=== PATIENT | male | born 1965 | race Caucasian/White ===

== ENCOUNTER 2023-02-23 12:25 | Inpatient (IN) | payer MEDICARE, OTHER ==
--- NOTE | 2023-02-23 13:17 | ED ---
General Adult HPI - General Chief complaint: Abdominal Pain Stated complaint: Low pulse ox Time Seen by Provider: 02/23/23 12:30 Source: EMS, RN notes reviewed, old records reviewed, Caregiver Mode of arrival: EMS Limitations: language barrier, altered mental status, physical limitation - History of Present Illness Initial comments: Nacpjhm-hhvk-wvk male with a history of being deaf and blind also history of developmental delay hypertension hypothyroidism and autism who is brought in for evaluation for a low pulse oximetry reading in the 80s. He started developing a fever for 5 days ago was placed on cephalexin for an x-ray was done and he was diagnosed with pneumonia 2 days ago. He was switched over to Levaquin. He's had decreased appetite decrease activity increase agitation. No trauma reported he is new to this facility as of the seventh of this month. He had been at another facility for 30 years. Information obtained from records and also from the caregiver. - Related Data Home Medications Medication Instructions Recorded Confirmed Cetirizine HCl 10 mg PO HS@189907/20/22 02/23/23 Famotidine 20 mg PO BID@06,189907/20/22 02/23/23 Lactose-Reduced Food [Boost] 1 can PO DAILY@59907/20/22 02/23/23 Levothyroxine Sodium [Synthroid] 75 mcg PO DAILY@59907/20/22 02/23/23 Magnesium Hydroxide [Milk of 2,400 mg PO DAILY PRN 07/20/22 02/23/23 Magnesia] Melatonin 3 mg PO HS@189907/20/22 02/23/23 Meloxicam [Mobic] 7.5 mg PO BID@599,189907/20/22 02/23/23 Metamucil 0.52gm 1 cap PO DAILY 07/20/22 02/23/23 Metoprolol Succinate (ER) [Toprol 25 mg PO DAILY@59907/20/22 02/23/23 XL] Na Phos,M-B/Na Phos,Di-Ba [Fleet 133 ml RECTAL DAILY PRN 07/20/22 02/23/23 Adult] Naltrexone HCl [Revia] 100 mg PO DAILY@0607/20/22 02/23/23 Gestuvpq-Ethzdfvwpk-Yloz Oint 1 applic TOPICAL DAILY PRN 07/20/22 02/23/23 [Triple Antibiotic Ointment] OLANZapine [ZyPREXA] 20 mg PO HS@1900 07/20/22 02/23/23 OXcarbazepine [Trileptal] 150 mg PO HS@0 07/20/22 02/23/23 OXcarbazepine [Trileptal] 600 mg PO BID@0600,1900 07/20/22 02/23/23 Phenyleph/Pramoxin/Glycr/W.pet 1 applic RECTAL DAILY PRN 07/20/22 02/23/23 [Preparation H Cream] Sennosides/Docusate Sodium [Senna 1 tab PO BID@0600,189907/20/22 02/23/23 Plus 8.6-50 mg Tablet] diphenhydrAMINE [Benadryl] 25 - 50 mg PO DAILY PRN 07/20/22 02/23/23 guaiFENesin-DM 600/30MG [Mucinex 1 tab PO Q12H PRN 07/20/22 02/23/23 Dm] polyethylene glycoL 3350 [Miralax] 17 gm PO DAILY@0600 07/20/22 02/23/23 Calcium Carbonate/Vitamin D3 1 tab PO DAILY@0600 02/23/23 02/23/23 [Calcium 500-Vit D3 5 Mcg (200 Iu)] Hydrocortisone Cream 1 applic TOPICAL BID PRN 02/23/23 02/23/23 [Hydrocortisone 1% Cream] Levofloxacin [Levaquin] 500 mg PO DAILY 02/23/23 02/23/23 Multivit-Min/FA/Lycopen/Lutein 1 tab PO DAILY@0602/23/23 02/23/23 [Centrum Silver Tablet] Ondansetron [Zofran] 4 mg PO BID PRN 02/23/23 02/23/23 Allergies Allergy/AdvReac Type Severity Reaction Status Date / Time brompheniramine Allergy Unknown Verified 02/23/23 16:22 [From Dimetapp (brompheniramine-PPA)] haloperidol [From Haldol] Allergy Unknown Verified 02/23/23 16:22 phenylpropanolamine Allergy Unknown Verified 02/23/23 16:22 [From Dimetapp (brompheniramine-PPA)] risperidone [From Risperdal] Allergy Unknown Verified 02/23/23 16:22 Review of Systems ROS Statement: Those systems with pertinent positive or pertinent negative responses have been documented in the HPI. ROS Other: All systems not noted in ROS Statement are negative. Past Medical History Additional Past Medical History / Comment(s): Hypertension, Constipation, Abnormal weight loss, Allergic Rhinitis, Autistic, Deaf/ Mute/ Blind, Hypothryoid. History of Any Multi-Drug Resistant Organisms: Unobtainable Past Surgical History: Unable to Obtain Additional Past Surgical History / Comment(s): Dental work under anesthesia, cataracts removed after multiple times. Past Anesthesia/Blood Transfusion Reactions: No Reported Reaction Past Psychological History: Unable to Obtain Smoking Status: Unknown if ever smoked Past Alcohol Use History: Unable to Obtain Past Drug Use History: Unable to Obtain - Past Family History Father Family Medical History: Myocardial Infarction ([place]) Additional Family Medical History / Comment(s): Father of a [place] at the age of 48yrs. He was a drinker and a smoker. General Exam - General Exam Comments Initial Comments: This is a well-developed thin appearing male who appears to be awake and biting his gloved left hand. Limitations: language barrier, altered mental status, physical limitation General appearance: lethargic Head exam: Present: atraumatic, normocephalic, normal inspection Eye exam: Present: PERRL, EOMI. Absent: scleral icterus, conjunctival injection, periorbital swelling ENT exam: Present: other (Try oral mucosa with chapped lips with a lower lip bleeding slightly but no repair indicated) Neck exam: Present: normal inspection, other. Absent: tenderness, meningismus, lymphadenopathy Respiratory exam: Present: decreased breath sounds (Reviewofbruits) Cardiovascular Exam: Present: regular rate, tachycardia GI/Abdominal exam: Present: soft, normal bowel sounds. Absent: distended, tenderness, guarding, rebound, rigid Extremities exam: Present: full ROM, normal capillary refill, other (Some edema seen to the right upper extremity no definitive deformity). Absent: tenderness, pedal edema, joint swelling, calf tenderness Back exam: Present: normal inspection Neurological exam: Present: altered, CN II-XII intact Psychiatric exam: Present: flat affect Skin exam: Present: warm, dry, intact, normal color. Absent: rash Course Vital Signs 02/23/23 12:43 Temperature 99.8 F H Pulse Rate 101 H Respiratory 18 Rate Blood Pressure 109/63 O2 Sat by Pulse 94 L Oximetry Medical Decision Making - Medical Decision Making I did discuss the findings with the patient's caregiver patient does demonstrate evidence of acute kidney injury dehydration right midlung pneumonia fever palpation treatment failure also rhabdomyolysis. Patient will be admitted case was discussed with Dr. Giordano who did come to the emergency department to see the patient nephrology will be consultedWas pt. sent in by a medical professional or institution (, JARETT, PLANT CARE WORKER, urgent care, hospital, or senior living...) When possible be specific @ -No Did you speak to anyone other than the patient for history (EMS, parent, family, police, friend...)? What history was obtained from this source @ -Caregiver Did you review nursing and triage notes (agree or disagree)? Why? @ -I reviewed and agree with nursing and triage notes Were old charts reviewed (outside hosp., previous admission, EMS record, old EKG, old radiological studies, urgent care reports/EKG's, senior living records)? Report findings @ -No old charts were reviewed Differential Diagnosis (chest pain, altered mental status, abdominal pain women, abdominal pain men, vaginal bleeding, weakness, fever, dyspnea, syncope, headache, dizziness, GI bleed, back pain, seizure, CVA, palpatations, mental health, musculoskeletal)? @ -Altered mental status, dehydration, pneumonia, outpatient treatment failure EKG interpreted by me (3pts min.). @ -Not done X-rays interpreted by me (1pt min.). @ -As above CT interpreted by me (1pt min.). @ -None done U/S interpreted by me (1pt. min.). @ -None done What testing was considered but not performed or refused? (CT, X-rays, U/S, labs)? Why? @ -None What meds were considered but not given or refused? Why? @ -None Did you discuss the management of the patient with other professionals (professionals i.e. JARETT Araiza, PLANT CARE WORKER, lab, RT, psych nurse, secondary social studies teacher, metal fitters and machinists, teacher, aviation tactical readiness officer, caser in)? Give summary @ -Dr. Giordano Was smoking cessation discussed for >3mins.? @ -No Was critical care preformed (if so, how long)? @ - 31 minutes which included multiple reevaluation of the patient multiple discussions with the caregiver discussion with the admitting physician admission orders documentation the above Were there social determinants of health that impacted care today? How? (Homelessness, low income, unemployed, alcoholism, drug addiction, transportat ion, low edu. Level, literacy, decrease access to med. care, intermediate, rehab)? @ -Low educational level and literacy Was there de-escalation of care discussed even if they declined (Discuss DNR or withdrawal of care, Hospice)? DNR status @ -No What co-morbidities impacted this encounter? (DM, HTN, Smoking, COPD, CAD, Cancer, CVA, ARF, Chemo, Hep., AIDS, mental health diagnosis, sleep apnea, morbid obesity)? @ -Developmental delay, blindness, limited hearing, hypothyroidism, hypertension Was patient admitted / discharged? Hospital course, mention meds given and route, prescriptions, significant lab abnormalities, going to OR and other pertinent info. @ -hospital course : The patient was admitted for inpatient evaluation treatment of acute kidney injury with nephrology consultation rhabdomyolysis dehydration pneumonia with failed outpatient treatment Undiagnosed new problem with uncertain prognosis? @ -Acute kidney injury, dehydration Drug Therapy requiring intensive monitoring for toxicity (Heparin, Nitro, Insulin, Cardizem)? @ -No Were any procedures done? @ -No Diagnosis/symptom? @ -Acute kidney injury, dehydration, right midlung pneumonia, outpatient treatment failure Acute, or Chronic, or Acute on Chronic? @ -Acute Uncomplicated (without systemic symptoms) or Complicated (systemic symptoms)? @ -Complicated acute kidney injury, dehydration, rhabdomyolysis Side effects of treatment? @ -No Exacerbation, Progression, or Severe Exacerbation? @ -Severe progression Poses a threat to life or bodily function? How? (Chest pain, [place], [place], pneumonia, PE, COPD, DKA, ARF, appy, cholecystitis, CVA, Diverticulitis, Homicidal, Suicidal, threat to staff... and all critical care pts) @ -Acute kidney injury dehydration pneumonia - Lab Data Result diagrams: 02/23/23 12:45 02/23/23 12:45 Lab Results 02/23/23 02/23/23 02/23/23 Range/Units 12:45 12:45 12:45 WBC 9.0 (3.8-10.6) k/uL RBC 4.30 (4.30-5.90) m/uL Hgb 13.7 (13.0-17.5) gm/dL Hct 40.8 (39.0-53.0) % MCV 95.1 (80.0-100.0) fL MCH 31.8 (25.0-35.0) pg MCHC 33.4 (31.0-37.0) g/dL RDW 13.5 (11.5-15.5) % Plt Count 58 L (150-450) k/uL MPV 8.0 Neutrophils % 85 % Lymphocytes % 3 % Monocytes % 8 % Eosinophils % 0 % Basophils % 0 % Neutrophils # 7.6 (1.3-7.7) k/uL Lymphocytes # 0.3 L (1.0-4.8) k/uL Monocytes # 0.7 (0-1.0) k/uL Eosinophils # 0.0 (0-0.7) k/uL Basophils # 0.0 (0-0.2) k/uL Manual Slide Review Performed RBC Morphology Normal PT 10.0 (9.0-12.0) sec INR 0.9 (<1.2) APTT 20.6 L (22.0-30.0) sec Sodium 140 (137-145) mmol/L Potassium 4.9 (3.5-5.1) mmol/L Chloride 105 (98-107) mmol/L Carbon Dioxide 21 L (22-30) mmol/L Anion Gap 14 mmol/L BUN 119 H* (9-20) mg/dL Creatinine 3.83 H (0.66-1.25) mg/dL Est GFR (CKD-EPI)AfAm 19 (>60 ml/min/1.73 sqM) Est GFR (CKD-EPI)NonAf 17 (>60 ml/min/1.73 sqM) Glucose 190 H (74-99) mg/dL Plasma Lactic Acid Roberto (0.7-2.0) mmol/L Calcium 10.5 H (8.4-10.2) mg/dL Total Bilirubin 0.6 (0.2-1.3) mg/dL AST 44 (17-59) U/L ALT 42 (4-49) U/L Alkaline Phosphatase 128 H (38-126) U/L Creatine Kinase (55-170) U/L Troponin I (0.000-0.034) ng/mL Total Protein 6.0 L (6.3-8.2) g/dL Albumin 3.2 L (3.5-5.0) g/dL TSH (0.465-4.680) mIU/L 02/23/23 02/23/23 02/23/23 Range/Units 12:45 12:45 12:45 WBC (3.8-10.6) k/uL RBC (4.30-5.90) m/uL Hgb (13.0-17.5) gm/dL Hct (39.0-53.0) % MCV (80.0-100.0) fL MCH (25.0-35.0) pg MCHC (31.0-37.0) g/dL RDW (11.5-15.5) % Plt Count (150-450) k/uL MPV Neutrophils % % Lymphocytes % % Monocytes % % Eosinophils % % Basophils % % Neutrophils # (1.3-7.7) k/uL Lymphocytes # (1.0-4.8) k/uL Monocytes # (0-1.0) k/uL Eosinophils # (0-0.7) k/uL Basophils # (0-0.2) k/uL Manual Slide Review RBC Morphology PT (9.0-12.0) sec INR (<1.2) APTT (22.0-30.0) sec Sodium (137-145) mmol/L Potassium (3.5-5.1) mmol/L Chloride (98-107) mmol/L Carbon Dioxide (22-30) mmol/L Anion Gap mmol/L BUN (9-20) mg/dL Creatinine (0.66-1.25) mg/dL Est GFR (CKD-EPI)AfAm (>60 ml/min/1.73 sqM) Est GFR (CKD-EPI)NonAf (>60 ml/min/1.73 sqM) Glucose (74-99) mg/dL Plasma Lactic Acid Roberto 1.7 (0.7-2.0) mmol/L Calcium (8.4-10.2) mg/dL Total Bilirubin (0.2-1.3) mg/dL AST (17-59) U/L ALT (4-49) U/L Alkaline Phosphatase (38-126) U/L Creatine Kinase 527 H (55-170) U/L Troponin I 0.055 H* (0.000-0.034) ng/mL Total Protein (6.3-8.2) g/dL Albumin (3.5-5.0) g/dL TSH 0.609 (0.465-4.680) mIU/L - Radiology Data Interpreted by me: I did interpret the imaging x-ray shows evidence of a right midlung infiltrate right humerus x-ray shows a chronic fracture no acute processes seen here. Critical Care Time Critical Care Time: Yes Total Critical Care Time: 31 Disposition Clinical Impression: Acute kidney injury, Rhabdomyolysis, Dehydration, Febrile illness, acute, Failure of outpatient treatment Disposition: ADMITTED IP TO THIS [facility] Condition: Fair Referrals: Asa Alcantar MD [Primary Care Provider] - 1-2 days
[2023-02-23 13:24] LABS: Albumin 3.2 g/dL (3.5-5.0); Calcium 10.5 mg/dL (8.4-10.2); Potassium 4.9 mmol/L (3.5-5.1); Total Bilirubin 0.6 mg/dL (0.2-1.3)
[2023-02-23 13:27] LABS: Basophils % (A) 0 %; Eosinophils % (A) 0 %; HCT 40.8 % (39.0-53.0); HGB 13.7 gm/dL (13.0-17.5); Lymphocytes # (A) 0.3 k/uL (1.0-4.8); Lymphocytes % (A) 3 %; MCH 31.8 pg (25.0-35.0); MCHC 33.4 g/dL (31.0-37.0); MCV 95.1 fL (80.0-100.0); Monocytes # (A) 0.7 k/uL (0-1.0); Monocytes % (A) 8 %; Neutrophils # (A) 7.6 k/uL (1.3-7.7); Neutrophils % (A) 85 %; RDW 13.5 % (11.5-15.5)
[2023-02-23 13:31] LABS: INR 0.9 (<1.2)
[2023-02-23 13:49] LABS: Platelet Count 58 k/uL (150-450)
[2023-02-23 13:50] LABS: RBC Morphology Normal
[2023-02-23 13:51] LABS: Partial Thromboplastin Time 20.6 sec (22.0-30.0)
[2023-02-23 14:08] LABS: Creatine Kinase 527 U/L (55-170)
--- NOTE | 2023-02-23 14:15 | XR ---
EXAMINATION TYPE: XR chest 2V DATE OF EXAM: 02/23/2023 COMPARISON: 07/20/2022 INDICATION: Hypoxia low O2 TECHNIQUE: Frontal and lateral views of the chest are obtained. Patient is rotated to the right. FINDINGS: The heart size is normal. The pulmonary vasculature is normal. Mild infiltrates in the right midlung. This is nonspecific. Correlate for atelectasis or pneumonia.. IMPRESSION: 1. Mild right midlung infiltrate. Correlate for atelectasis or pneumonia. Follow-up can be performed.
--- NOTE | 2023-02-23 15:55 | XR ---
EXAMINATION TYPE: XR humerus RT DATE OF EXAM: 02/23/2023 COMPARISON: NONE HISTORY: Pain TECHNIQUE: 3 views FINDINGS: There is old ununited mid shaft fracture of the humerus. There is anterior displacement of the distal humerus fragment 3.5 cm. There is some bridging callus formation. The shoulder joint and e lbow joint appear anatomic. There is 90 degree anterior angulation of the fracture site on the latera l view. 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
[2023-02-23] MEDS ORDERED: LEVOFLOXACIN 500MG-D5W PMX 500 MG in DEXTROSE/WATER 1 100ML.BAG IVPB STA (17:20)
[2023-02-23] MEDS ORDERED: PNEUMONIA PROTOCOL UTILIZED 1 EACH MISC PO PRN (17:21)
[2023-02-23] MEDS ORDERED: NA PHOS,M-B/NA PHOS,DI-BA 133 ML ENEMA RECTAL PRN (17:24)
[2023-02-23] MEDS ORDERED: ONDANSETRON 4 MG TAB PO PRN (17:24)
[2023-02-23] MEDS ORDERED: guaiFENesin-DM 600/30MG 1 EACH TAB.ER.12H PO PRN (17:24)
[2023-02-23] MEDS ORDERED: diphenhydrAMINE 25 MG CAP PO PRN (17:24)
--- NOTE | 2023-02-23 17:53 | HP ---
HISTORY AND PHYSICAL CHIEF COMPLAINT: Hypoxia, abdominal pain, and multiple symptomatology. HISTORY OF PRESENT ILLNESS: This is a 57-year-old gentleman with a past medical history of developmental delay and multiple other medical problems, being followed by a physician in the outpatient setting, was not feeling well in the past several days. The patient was initially treated for the UTI, but subsequently, pneumonia was suspected and started on antibiotic. The patient was found to have low pulse ox and was uncomfortable, and the patient was taken to [facility]. Chest x-ray showed evidence of bilateral lower lobe infiltrate, possibly left more than right. The patient was admitted for further evaluation and treatment. The patient is unable to provide any detailed history. History is obtained from my discussion with the ER physician, staff, and as well as the family at the bedside. PAST MEDICAL HISTORY: Reviewed includes hypertension. Rest of the history and rest of the chart are also reviewed. HOME MEDICATIONS: Reviewed again include MiraLAX. Doses and rest of the medications are reviewed, and they are not confirmed yet in the computer. ALLERGIES: Reviewed include Haldol. Rest of the allergies noted. FAMILY HISTORY: History of myocardial infarction. SOCIAL HISTORY: Could not be taken because of the patient's change in mental status. REVIEW OF SYSTEMS: Could not be taken because of the patient's change in mental status. PREOPERATIVE DIAGNOSIS: VITAL SIGNS: Pulse is 101, blood pressure 119/60, respirations 18, temperature 99.8. HEENT: Conjunctivae are normal. NECK: No jugular venous distention. CARDIOVASCULAR: S1 and S2 muffled. RESPIRATORY: Few scattered rhonchi. ABDOMEN: Soft and nontender. LEGS: No edema. NERVOUS SYSTEM: Diffusely weak. Some contractures present. SKIN: No ulcers or rashes. JOINTS: No active deforming arthropathy. LABORATORY DATA: Reviewed. Creatinine is 2.83, which is worsening from the prior. ASSESSMENT: 1. Possible acute bilateral pneumonia, left more than right, with failure of outpatient treatment. 2. Acute kidney failure with acute prerenal factors and acute tubular necrosis. 3. Troponin 0.055, indeterminate. 4. Development delay. 5. Hypertension. 6. Constipation. 7. Multiple medical issues. RECOMMENDATIONS: In this 57-year-old gentleman, who presented with multiple complex medical issues, we will monitor the patient closely. We will continue with current medications and gentle IV hydration. Nephrology consultation. We will monitor the creatinine closely. We will resume the home medications once they are confirmed in the computer, but avoid nephrotoxic medications at this time. Had a detailed discussion with the family at the bedside. Overall prognosis is extremely guarded because of multiple complex medical issues as detailed above. Further recommendations to follow. JUANITO / JERIN: [id number] /
[2023-02-23] MEDS: SODIUM CHLORIDE 0.9% 1,000 ML IV SCH (18:31)
[2023-02-23] MEDS: OXcarbazepine 300 MG TAB PO SCH (20:54)
[2023-02-23] MEDS: OLANZapine 10 MG TAB PO SCH (20:54)
[2023-02-23] MEDS: OXcarbazepine 150 MG TAB PO SCH (20:54)
[2023-02-23] MEDS: FAMOTIDINE 20 MG TAB PO SCH (20:55)
[2023-02-23] MEDS: SENNOSIDES-DOCUSATE SODIUM 1 EACH TAB PO SCH (20:55)
[2023-02-23] MEDS: MELATONIN 3 MG TABLET PO SCH (20:55)
[2023-02-23] MEDS: MELOXICAM 7.5 MG TAB PO SCH (20:55)
[2023-02-23] MEDS: LORATADINE 10 MG TAB PO SCH (20:55)
[2023-02-24] MEDS ORDERED: NON FORMULARY DRUG (Lactose-Reduced Food [Boost] 237 ML Ml) PO SCH (06:00)
[2023-02-24] MEDS: FAMOTIDINE 20 MG TAB PO SCH (06:26)
[2023-02-24] MEDS: NALTREXONE HCL 50 MG TAB PO SCH (06:26)
[2023-02-24] MEDS: MELOXICAM 7.5 MG TAB PO SCH (06:26)
[2023-02-24] MEDS: polyethylene glycoL 3350 17 GM POWD.PACK PO SCH (06:27)
[2023-02-24] MEDS: OXcarbazepine 300 MG TAB PO SCH ×2 (06:27→21:59)
[2023-02-24] MEDS: MULTIVITAMINS, THERA 1 EACH TAB PO SCH (06:27)
[2023-02-24] MEDS: METOPROLOL SUCCINATE (ER) 25 MG TAB.ER.24H PO SCH (06:27)
[2023-02-24] MEDS: LEVOTHYROXINE 75 MCG TAB PO SCH (06:27)
[2023-02-24] MEDS: SENNOSIDES-DOCUSATE SODIUM 1 EACH TAB PO SCH ×2 (06:27→22:01)
[2023-02-24] MEDS: CALCIUM CARB-VIT D 500 MG-5 MCG TAB PO SCH (06:27)
[2023-02-24] MEDS: SODIUM CHLORIDE 0.9% 1,000 ML IV SCH ×4 (06:39→21:45)
[2023-02-24 07:36] LABS: Albumin 2.7 g/dL (3.5-5.0); Calcium 9.9 mg/dL (8.4-10.2); Potassium 4.3 mmol/L (3.5-5.1); Total Bilirubin 0.5 mg/dL (0.2-1.3); Total Protein 5.2 g/dL (6.3-8.2)
[2023-02-24 07:38] LABS: HCT 37.6 % (39.0-53.0); HGB 12.5 gm/dL (13.0-17.5); MCH 32.5 pg (25.0-35.0); MCHC 33.3 g/dL (31.0-37.0); MCV 97.6 fL (80.0-100.0); Mean Platelet Volume 8.8; RBC 3.85 m/uL (4.30-5.90); RDW 13.5 % (11.5-15.5); WBC 7.7 k/uL (3.8-10.6)
[2023-02-24 07:39] LABS: Platelet Count 36 k/uL (150-450)
[2023-02-24] MEDS: PSYLLIUM HUSK 100% 6 GM PACKET PO SCH ×2 (08:52→12:24)
[2023-02-24] MEDS ORDERED: LEVOFLOXACIN 500 MG TAB PO SCH (09:00)
--- NOTE | 2023-02-24 12:15 | XR ---
EXAMINATION TYPE: XR chest 1V portable DATE OF EXAM: 02/24/2023 COMPARISON: 02/23/2023 INDICATION: Pneumonia TECHNIQUE: Single frontal view of the chest is obtained. FINDINGS: The heart size is normal. The pulmonary vasculature is normal. Minimal linear opacities in the right midlung. This appears improved from comparison. Correlate for a telectasis. IMPRESSION: 1. Improving atelectatic type changes right midlung.
--- NOTE | 2023-02-24 12:27 | P.NPCON ---
History of Present Illness - Reason for Consult acute renal failure - History of Present Illness Patient is a 57-year-old male with history of developmental delay and hypertension. He is admitted to the hospital with history of fever along with decreased appetite and increased agitation. Patient was treated with oral antibiotics for possible pneumonia. There was concern for UTI as well. Patient is currently with a bedside sitter. He has been pulling on his IVs and his left arm is restrained with a mitten. Serum creatinine was 3.8 on admission and down to 3.6. Previous creatinine 1.2 on 07/23/2022 Patient has a diaper on. It appears that he has been incontinent. Blood pressure was low with systolic in the 90s. Patient is also maintained on Mobic. Review of Systems As per HPI Past Medical History Past Medical History: Hearing Disorder / Deafness, Hypertension, Thyroid Disorder Additional Past Medical History / Comment(s): Hypertension, Constipation, Abnormal weight loss, Allergic Rhinitis, Autistic, Deaf/ Mute/ Blind, Hypothryoid. History of Any Multi-Drug Resistant Organisms: Unobtainable Past Surgical History: Unable to Obtain Additional Past Surgical History / Comment(s): Dental work under anesthesia, cataracts removed after multiple times. Past Anesthesia/Blood Transfusion Reactions: No Reported Reaction Smoking Status: Never smoker - Past Family History Father Family Medical History: Myocardial Infarction ([place]) Additional Family Medical History / Comment(s): Father of a [place] at the age of 48yrs. He was a drinker and a smoker. Medications and Allergies Home Medications Medication Instructions Recorded Confirmed Type Cetirizine HCl 10 mg PO HS@189907/20/22 02/23/23 History Famotidine 20 mg PO BID@06,189907/20/22 02/23/23 History Lactose-Reduced Food [Boost] 1 can PO DAILY@59907/20/22 02/23/23 History Levothyroxine Sodium [Synthroid] 75 mcg PO DAILY@59907/20/22 02/23/23 History Magnesium Hydroxide [Milk of 2,400 mg PO DAILY PRN 07/20/22 02/23/23 History Magnesia] Melatonin 3 mg PO HS@189907/20/22 02/23/23 History Meloxicam [Mobic] 7.5 mg PO BID@06,189907/20/22 02/23/23 History Metamucil 0.52gm 1 cap PO DAILY 07/20/22 02/23/23 History Metoprolol Succinate (ER) [Toprol 25 mg PO DAILY@59907/20/22 02/23/23 History XL] Na Phos,M-B/Na Phos,Di-Ba [Fleet 133 ml RECTAL DAILY PRN 07/20/22 02/23/23 History Adult] Naltrexone HCl [Revia] 100 mg PO DAILY@0607/20/22 02/23/23 History Fvojhjvs-Ssfnmudwgc-Ajyw Oint 1 applic TOPICAL DAILY PRN 07/20/22 02/23/23 History [Triple Antibiotic Ointment] OLANZapine [ZyPREXA] 20 mg PO HS@189907/20/22 02/23/23 History OXcarbazepine [Trileptal] 150 mg PO HS@189907/20/22 02/23/23 History OXcarbazepine [Trileptal] 600 mg PO BID@0600,189907/20/22 02/23/23 History Phenyleph/Pramoxin/Glycr/W.pet 1 applic RECTAL DAILY PRN 07/20/22 02/23/23 History [Preparation H Cream] Sennosides/Docusate Sodium [Senna 1 tab PO BID@0600,189907/20/22 02/23/23 History Plus 8.6-50 mg Tablet] diphenhydrAMINE [Benadryl] 25 - 50 mg PO DAILY PRN 07/20/22 02/23/23 History guaiFENesin-DM 600/30MG [Mucinex 1 tab PO Q12H PRN 07/20/22 02/23/23 History Dm] polyethylene glycoL 3350 [Miralax] 17 gm PO DAILY@59907/20/22 02/23/23 History Calcium Carbonate/Vitamin D3 1 tab PO DAILY@59902/23/23 02/23/23 History [Calcium 500-Vit D3 5 Mcg (200 Iu)] Hydrocortisone Cream 1 applic TOPICAL BID PRN 02/23/23 02/23/23 History [Hydrocortisone 1% Cream] Levofloxacin [Levaquin] 500 mg PO DAILY 02/23/23 02/23/23 History Multivit-Min/FA/Lycopen/Lutein 1 tab PO DAILY@0600 02/23/23 02/23/23 History [Centrum Silver Tablet] Ondansetron [Zofran] 4 mg PO BID PRN 02/23/23 02/23/23 History Allergies Allergy/AdvReac Type Severity Reaction Status Date / Time brompheniramine Allergy Unknown Verified 02/23/23 16:22 [From Dimetapp (brompheniramine-PPA)] haloperidol [From Haldol] Allergy Unknown Verified 02/23/23 16:22 phenylpropanolamine Allergy Unknown Verified 02/23/23 16:22 [From Dimetapp (brompheniramine-PPA)] risperidone [From Risperdal] Allergy Unknown Verified 02/23/23 16:22 Physical Exam Vitals: Vital Signs Temp Pulse Pulse Resp BP BP BP 02/24/23 11:43 97.8 F 75 20 108/63 02/24/23 08:15 98.3 F 92 20 125/70 02/24/23 04:00 98.2 F 96 19 106/69 02/24/23 00:00 98.5 F 98 19 103/69 02/23/23 20:51 98.8 F 101 H 19 142/75 02/23/23 19:25 101 H 20 96/68 02/23/23 18:28 99.8 F H 106 H 18 130/57 02/23/23 17:00 110 H 18 130/57 02/23/23 15:00 112 H 115/73 02/23/23 14:00 109 H 119/68 02/23/23 13:47 108 H 02/23/23 12:43 99.8 F H 101 H 18 109/63 Pulse Ox 02/24/23 11:43 95 02/24/23 08:15 94 L 02/24/23 04:00 96 02/24/23 00:00 92 L 02/23/23 20:51 95 02/23/23 19:25 99 02/23/23 18:28 94 L 02/23/23 17:00 94 L 02/23/23 15:00 02/23/23 14:00 93 L 02/23/23 13:47 02/23/23 12:43 94 L Intake and Output 02/23/23 02/24/23 02/24/23 22:59 06:59 14:59 Other: Voiding Method Incontinent Incontinent # Voids 1 Weight 54.885 kg Patient is sleeping. He has been agitated and biting on the medicine as well as pulling on his IV lines Right upper extremity is atrophic Heart sounds are heard Lungs are clear with decreased breath sounds at the bases Abdomen is soft Examination of lower extremity shows no edema Results - Lab Results Most recent lab results Calcium 9.9 mg/dL (8.4-10.2) 02/24/23 06:56 02/24/23 06:56 02/24/23 06:56 Assessment and Plan Assessment: 1. Acute kidney injury, mostly ischemic ATN, currently nonoliguric. Patient is also maintained on NSAIDs. Check UA. Check ultrasound of the kidneys. Continue with IV fluids 2. Agitation possibly related to underlying infection 3. Recent diagnosis of pneumonia maintained on antibiotics as outpatient prior to admission, currently also on IV Rocephin 4. 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 History of hypertension Plan: DC Mobic Check ultrasound of the kidneys Check urine analysis Repeat labs in a.m. Avoid hypotension Continue with IV fluids
--- NOTE | 2023-02-24 14:10 | P.PN ---
Subjective Progress Note Date: 02/24/23 Patient is a 57-year-old male with history of developmental delay and hypertension. He is admitted to the hospital with history of fever along with decreased appetite and increased agitation. Patient was treated with oral antibiotics for possible pneumonia. There was concern for UTI as well. Patient is currently with a bedside sitter. He has been pulling on his IVs and his left arm is restrained with a mitten. 02/24. Patient seen and examined. Patient is pulling on his IVs, sitter in place, unable to obtain a detailed review of systems because of patient's history of developmental delay REVIEW OF SYSTEMS: Unable to obtain a detailed review of systems because of patient's history of developmental delay PHYSICAL EXAMINATION: GENERAL: History of developmental delay, confused, not in any acute distress. HEENT: Pupils are round and equally reacting to light. EOMI. No scleral icterus. No conjunctival pallor. Normocephalic, atraumatic. No pharyngeal erythema. No thyromegaly. CARDIOVASCULAR: S1 and S2 present. No murmurs, rubs, or gallops. PULMONARY: Chest is clear to auscultation, no wheezing or crackles. ABDOMEN: Soft, nontender, nondistended, normoactive bowel sounds. No palpable organomegaly. MUSCULOSKELETAL: Swelling of upper extremity seen EXTREMITIES: No cyanosis, clubbing, or pedal edema. NEUROLOGICAL: History of developmental delay SKIN: No rashes. Assessment and plan Bacteremia Bacterial pneumonia SHAYNE Elevated troponin Developmental delay Monitor vital signs Monitor CBC Monitor CMP Continue telemetry monitoring Follow-up on blood cultures Continue IV Rocephin and Levaquin. Added Zyvox Follow-up in nephrology recommendations Consulted ID Objective - Vital Signs Vital signs: Vital Signs Temp 98.3 F 02/24/23 08:15 Pulse 92 02/24/23 08:15 Resp 20 02/24/23 08:15 BP 125/70 02/24/23 08:15 Pulse Ox 94 L 02/24/23 08:15 FiO2 Intake & Output 02/23/23 02/24/23 02/24/23 18:59 06:59 18:59 Weight 54.885 kg 54.885 kg Other: Voiding Method Diaper Incontinent Incontinent # Voids 1 - Labs CBC & Chem 7: 02/24/23 06:56 02/24/23 06:56 Labs: Abnormal Lab Results - Last 24 Hours (Table) 02/23/23 02/23/23 02/23/23 Range/Units 12:45 12:45 12:45 RBC (4.30-5.90) m/uL Hgb (13.0-17.5) gm/dL Hct (39.0-53.0) % Plt Count 58 L (150-450) k/uL Lymphocytes # 0.3 L (1.0-4.8) k/uL APTT 20.6 L (22.0-30.0) sec Chloride (98-107) mmol/L Carbon Dioxide 21 L (22-30) mmol/L BUN 119 H* (9-20) mg/dL Creatinine 3.83 H (0.66-1.25) mg/dL Glucose 190 H (74-99) mg/dL Calcium 10.5 H (8.4-10.2) mg/dL Alkaline Phosphatase 128 H (38-126) U/L Creatine Kinase (55-170) U/L Troponin I (0.000-0.034) ng/mL Total Protein 6.0 L (6.3-8.2) g/dL Albumin 3.2 L (3.5-5.0) g/dL 02/23/23 02/23/23 02/24/23 Range/Units 12:45 12:45 06:56 RBC 3.85 L (4.30-5.90) m/uL Hgb 12.5 L (13.0-17.5) gm/dL Hct 37.6 L (39.0-53.0) % Plt Count 36 L (150-450) k/uL Lymphocytes # (1.0-4.8) k/uL APTT (22.0-30.0) sec Chloride (98-107) mmol/L Carbon Dioxide (22-30) mmol/L BUN (9-20) mg/dL Creatinine (0.66-1.25) mg/dL Glucose (74-99) mg/dL Calcium (8.4-10.2) mg/dL Alkaline Phosphatase (38-126) U/L Creatine Kinase 527 H (55-170) U/L Troponin I 0.055 H* (0.000-0.034) ng/mL Total Protein (6.3-8.2) g/dL Albumin (3.5-5.0) g/dL 02/24/23 Range/Units 06:56 RBC (4.30-5.90) m/uL Hgb (13.0-17.5) gm/dL Hct (39.0-53.0) % Plt Count (150-450) k/uL Lymphocytes # (1.0-4.8) k/uL APTT (22.0-30.0) sec Chloride 113 H (98-107) mmol/L Carbon Dioxide 21 L (22-30) mmol/L BUN 128 H* (9-20) mg/dL Creatinine 3.64 H (0.66-1.25) mg/dL Glucose 138 H (74-99) mg/dL Calcium (8.4-10.2) mg/dL Alkaline Phosphatase 130 H (38-126) U/L Creatine Kinase (55-170) U/L Troponin I (0.000-0.034) ng/mL Total Protein 5.2 L (6.3-8.2) g/dL Albumin 2.7 L (3.5-5.0) g/dL Microbiology - Last 24 Hours (Table) 02/23/23 19:50 Blood Culture Gram Stain - Preliminary Blood 02/23/23 19:50 Blood Culture - Final Blood 02/23/23 19:44 Blood Culture Gram Stain - Preliminary Blood 02/23/23 19:44 Blood Culture - Final Blood 02/23/23 15:45 Blood Culture - Final Blood
--- NOTE | 2023-02-24 14:44 | US ---
EXAMINATION TYPE: US kidneys/renal and bladder DATE OF EXAM: 02/24/2023 COMPARISON: NONE CLINICAL HISTORY: Acute kidney infection. EXAM MEASUREMENTS: Right Kidney: -- Left Kidney: 6.8 x 4.2 x 4.1 cm Right Kidney: Obscured by overlying bowel gas Left Kidney: Limited view, smaller in size Bladder: Patient was combative, unable to attempt bladder views Bilateral Jets seen: No Patient is combative and uncooperative. Unable to visualized the right kidney or the bladder. Left kidney is limited visualization. IMPRESSION: Limited exam shows no gross abnormality of the left kidney. Right kidney not visualized. Bladder not evaluated.
[2023-02-24 15:14] LABS: Band Neutrophils % 1 %; Lymphocytes # (M) 0.39 k/uL (1.0-4.8); Monocytes # (M) 0.92 k/uL (0-1.0); Neutrophils % (M) 82 %; Nucleated Red Blood Cells 0 /100 WBC (0-0); Total Cells Counted 100
[2023-02-24 15:15] LABS: RBC Morphology Normal
[2023-02-24 15:55] LABS: Amorphous Sediment,Urine Occasional /hpf; Appearance,Urine Cloudy (Clear); Bilirubin,Urine Negative (Negative); Blood,Urine Large (Negative); Color,Urine Yellow; Glucose,Urine (UA) Negative (Negative); Ketones,Urine Negative (Negative); Leukocyte Esterase,Urine Negative (Negative); Nitrite,Urine Negative (Negative); PH, Urine 5.5 (5.0-8.0); Protein,Urine 1+ (Negative); RBC,Urine >182 /hpf (0-5); Specific Gravity,Urine 1.013 (1.001-1.035); Urobilinogen,Urine <2.0 mg/dL (<2.0); WBC,Urine 3 /hpf (0-5)
--- NOTE | 2023-02-24 20:54 | P.CONS ---
History of Present Illness - Reason for Consult Consult date: 02/24/23 - History of Present Illness Patient is a 57-year-old male with a past medical history significant for developmental delay patient is deaf and blind also with a history of hypertension hypothyroidism and autism the patient was brought into the ER or the patient was noticed to have low pulse ox in the 80s and the patient has been running a fever for 5 days apparently has been treated with the cephalexin as the patient was diagnosed with pneumonia 2 days prior to that patient noticed to having decreased appetite and increasing agitation he did have a congested cough not bring up any sputum no vomiting to do the food or any diarrhea has been reported by the nursing staff patient on presentation the hospital have a low- grade fever of 99.8 F patient is currently satting 96 to 94% on room air patient did have a normal white count did have elevated BUN/creatinine liver enzymes are normal troponin was mildly elevated and urine was showing mostly hematuria patient did have blood cultures drawn which came back with gram- positive cocci patient was on Rocephin Zyvox was added infectious disease was consulted for further management of antibiotic therapy most of the information has been obtained from review of the chart talking to the nursing staff as the patient was not able to provide any history because of underlying clinical condition patient did have a chest x-ray with evidence of right lower lobe i nfiltrate concerning for pneumonia Past Medical History Past Medical History: Hearing Disorder / Deafness, Hypertension, Thyroid Disorder Additional Past Medical History / Comment(s): Hypertension, Constipation, Abnormal weight loss, Allergic Rhinitis, Autistic, Deaf/ Mute/ Blind, Hypothryoid. History of Any Multi-Drug Resistant Organisms: Unobtainable Past Surgical History: Unable to Obtain Additional Past Surgical History / Comment(s): Dental work under anesthesia, cataracts removed after multiple times. Past Anesthesia/Blood Transfusion Reactions: No Reported Reaction Smoking Status: Never smoker - Past Family History Father Family Medical History: Myocardial Infarction (NV) Additional Family Medical History / Comment(s): Father of a NV at the age of 48yrs. He was a drinker and a smoker. Medications and Allergies Home Medications Medication Instructions Recorded Confirmed Type Cetirizine HCl 10 mg PO HS@1900 07/20/22 02/23/23 History Famotidine 20 mg PO BID@0600,1900 07/20/22 02/23/23 History Lactose-Reduced Food [Boost] 1 can PO DAILY@0607/20/22 02/23/23 History Levothyroxine Sodium [Synthroid] 75 mcg PO DAILY@59907/20/22 02/23/23 History Magnesium Hydroxide [Milk of 2,400 mg PO DAILY PRN 07/20/22 02/23/23 History Magnesia] Melatonin 3 mg PO HS@189907/20/22 02/23/23 History Meloxicam [Mobic] 7.5 mg PO BID@0600,189907/20/22 02/23/23 History Metamucil 0.52gm 1 cap PO DAILY 07/20/22 02/23/23 History Metoprolol Succinate (ER) [Toprol 25 mg PO DAILY@59907/20/22 02/23/23 History XL] Na Phos,M-B/Na Phos,Di-Ba [Fleet 133 ml RECTAL DAILY PRN 07/20/22 02/23/23 History Adult] Naltrexone HCl [Revia] 100 mg PO DAILY@59907/20/22 02/23/23 History Hckfsgtl-Xcwnhiigmk-Xosm Oint 1 applic TOPICAL DAILY PRN 07/20/22 02/23/23 History [Triple Antibiotic Ointment] OLANZapine [ZyPREXA] 20 mg PO HS@189907/20/22 02/23/23 History OXcarbazepine [Trileptal] 150 mg PO HS@189907/20/22 02/23/23 History OXcarbazepine [Trileptal] 600 mg PO BID@0600,189907/20/22 02/23/23 History Phenyleph/Pramoxin/Glycr/W.pet 1 applic RECTAL DAILY PRN 07/20/22 02/23/23 History [Preparation H Cream] Sennosides/Docusate Sodium [Senna 1 tab PO BID@0600,189907/20/22 02/23/23 History Plus 8.6-50 mg Tablet] diphenhydrAMINE [Benadryl] 25 - 50 mg PO DAILY PRN 07/20/22 02/23/23 History guaiFENesin-DM 600/30MG [Mucinex 1 tab PO Q12H PRN 07/20/22 02/23/23 History Dm] polyethylene glycoL 3350 [Miralax] 17 gm PO DAILY@0600 07/20/22 02/23/23 History Calcium Carbonate/Vitamin D3 1 tab PO DAILY@0600 02/23/23 02/23/23 History [Calcium 500-Vit D3 5 Mcg (200 Iu)] Hydrocortisone Cream 1 applic TOPICAL BID PRN 02/23/23 02/23/23 History [Hydrocortisone 1% Cream] Levofloxacin [Levaquin] 500 mg PO DAILY 02/23/23 02/23/23 History Multivit-Min/FA/Lycopen/Lutein 1 tab PO DAILY@0600 02/23/23 02/23/23 History [Centrum Silver Tablet] Ondansetron [Zofran] 4 mg PO BID PRN 02/23/23 02/23/23 History Allergies Allergy/AdvReac Type Severity Reaction Status Date / Time brompheniramine Allergy Unknown Verified 02/23/23 16:22 [From Dimetapp (brompheniramine-PPA)] haloperidol [From Haldol] Allergy Unknown Verified 02/23/23 16:22 phenylpropanolamine Allergy Unknown Verified 02/23/23 16:22 [From Dimetapp (brompheniramine-PPA)] risperidone [From Risperdal] Allergy Unknown Verified 02/23/23 16:22 Physical Exam Vitals: Vital Signs Temp Pulse Pulse Resp BP BP BP 02/24/23 08:15 98.3 F 92 20 125/70 02/24/23 04:00 98.2 F 96 19 106/69 02/24/23 00:00 98.5 F 98 19 103/69 02/23/23 20:51 98.8 F 101 H 19 142/75 02/23/23 19:25 101 H 20 96/68 02/23/23 18:28 99.8 F H 106 H 18 130/57 02/23/23 17:00 110 H 18 130/57 02/23/23 15:00 112 H 115/73 02/23/23 14:00 109 H 119/68 02/23/23 13:47 108 H 02/23/23 12:43 99.8 F H 101 H 18 109/63 Pulse Ox 02/24/23 08:15 94 L 02/24/23 04:00 96 02/24/23 00:00 92 L 02/23/23 20:51 95 02/23/23 19:25 99 02/23/23 18:28 94 L 02/23/23 17:00 94 L 02/23/23 15:00 02/23/23 14:00 93 L 02/23/23 13:47 02/23/23 12:43 94 L Intake and Output 02/23/23 02/24/23 02/24/23 22:59 06:59 14:59 Other: Voiding Method Incontinent Incontinent # Voids 1 Weight 54.885 kg Results CBC & Chem 7: 02/24/23 06:56 02/24/23 06:56 Labs: Abnormal Lab Results - Last 24 Hours (Table) 02/23/23 02/23/23 02/23/23 Range/Units 12:45 12:45 12:45 RBC (4.30-5.90) m/uL Hgb (13.0-17.5) gm/dL Hct (39.0-53.0) % Plt Count 58 L (150-450) k/uL Lymphocytes # 0.3 L (1.0-4.8) k/uL APTT 20.6 L (22.0-30.0) sec Chloride (98-107) mmol/L Carbon Dioxide 21 L (22-30) mmol/L BUN 119 H* (9-20) mg/dL Creatinine 3.83 H (0.66-1.25) mg/dL Glucose 190 H (74-99) mg/dL Calcium 10.5 H (8.4-10.2) mg/dL Alkaline Phosphatase 128 H (38-126) U/L Creatine Kinase (55-170) U/L Troponin I (0.000-0.034) ng/mL Total Protein 6.0 L (6.3-8.2) g/dL Albumin 3.2 L (3.5-5.0) g/dL 02/23/23 02/23/23 02/24/23 Range/Units 12:45 12:45 06:56 RBC 3.85 L (4.30-5.90) m/uL Hgb 12.5 L (13.0-17.5) gm/dL Hct 37.6 L (39.0-53.0) % Plt Count 36 L (150-450) k/uL Lymphocytes # (1.0-4.8) k/uL APTT (22.0-30.0) sec Chloride (98-107) mmol/L Carbon Dioxide (22-30) mmol/L BUN (9-20) mg/dL Creatinine (0.66-1.25) mg/dL Glucose (74-99) mg/dL Calcium (8.4-10.2) mg/dL Alkaline Phosphatase (38-126) U/L Creatine Kinase 527 H (55-170) U/L Troponin I 0.055 H* (0.000-0.034) ng/mL Total Protein (6.3-8.2) g/dL Albumin (3.5-5.0) g/dL 02/24/23 Range/Units 06:56 RBC (4.30-5.90) m/uL Hgb (13.0-17.5) gm/dL Hct (39.0-53.0) % Plt Count (150-450) k/uL Lymphocytes # (1.0-4.8) k/uL APTT (22.0-30.0) sec Chloride 113 H (98-107) mmol/L Carbon Dioxide 21 L (22-30) mmol/L BUN 128 H* (9-20) mg/dL Creatinine 3.64 H (0.66-1.25) mg/dL Glucose 138 H (74-99) mg/dL Calcium (8.4-10.2) mg/dL Alkaline Phosphatase 130 H (38-126) U/L Creatine Kinase (55-170) U/L Troponin I (0.000-0.034) ng/mL Total Protein 5.2 L (6.3-8.2) g/dL Albumin 2.7 L (3.5-5.0) g/dL Microbiology - Last 24 Hours (Table) 02/23/23 19:50 Blood Culture Gram Stain - Preliminary Blood 02/23/23 19:50 Blood Culture - Final Blood 02/23/23 19:44 Blood Culture Gram Stain - Preliminary Blood 02/23/23 19:44 Blood Culture - Final Blood 02/23/23 15:45 Blood Culture - Final Blood Assessment and Plan Plan: 1patient with gram-positive bacteremia in this patient presented to hospital with low pulse ox congested cough and evidence of left lower lobe infiltrate on the chest x-ray concerning for pneumonia likely secondary to pneumonia with a question of possible strep pneumo versus Staph aureus failing outpatient oral cephalexin therapy. 2patient with renal insufficiency and high risk of nephrotoxicity from vancomycin. 3blood cultures will be repeated document clearance of bacteremia check a CRP and a procalcitonin. 4patient to continue with Zyvox while waiting for the ID sensitivity of this pathogen. We will follow on clinical condition and cultures to further adjust medication if needed Thank you for this consultation we will follow the patient along with you Time with Patient: Greater than 30
[2023-02-24] MEDS: LINEZOLID 600 MG TAB PO SCH (22:00)
[2023-02-24] MEDS: OLANZapine 10 MG TAB PO SCH (22:00)
[2023-02-24] MEDS: OXcarbazepine 150 MG TAB PO SCH (22:00)
[2023-02-24] MEDS: MELATONIN 3 MG TABLET PO SCH (22:01)
[2023-02-24] MEDS: LORATADINE 10 MG TAB PO SCH (22:01)
[2023-02-25] MEDS ORDERED: FAMOTIDINE 20 MG TAB PO SCH (06:00)
[2023-02-25] MEDS: LEVOTHYROXINE 75 MCG TAB PO SCH (06:29)
[2023-02-25] MEDS: CALCIUM CARB-VIT D 500 MG-5 MCG TAB PO SCH (06:29)
[2023-02-25] MEDS: SENNOSIDES-DOCUSATE SODIUM 1 EACH TAB PO SCH ×2 (06:29→21:41)
[2023-02-25] MEDS: MULTIVITAMINS, THERA 1 EACH TAB PO SCH (06:29)
[2023-02-25] MEDS: METOPROLOL SUCCINATE (ER) 25 MG TAB.ER.24H PO SCH (06:29)
[2023-02-25] MEDS: NALTREXONE HCL 50 MG TAB PO SCH (06:30)
[2023-02-25] MEDS: LINEZOLID 600 MG TAB PO SCH (06:30)
[2023-02-25] MEDS: OXcarbazepine 300 MG TAB PO SCH (06:31)
[2023-02-25] MEDS: polyethylene glycoL 3350 17 GM POWD.PACK PO SCH (06:32)
[2023-02-25] MEDS: PSYLLIUM HUSK 100% 6 GM PACKET PO SCH (07:00)
[2023-02-25] MEDS: SODIUM CHLORIDE 0.9% 1,000 ML IV SCH (08:00)
[2023-02-25 09:38] LABS: HCT 37.5 % (39.0-53.0); HGB 11.8 gm/dL (13.0-17.5); MCH 30.7 pg (25.0-35.0); MCHC 31.4 g/dL (31.0-37.0); Mean Platelet Volume 8.7; RBC 3.83 m/uL (4.30-5.90); RDW 13.8 % (11.5-15.5); WBC 8.7 k/uL (3.8-10.6)
[2023-02-25 09:40] LABS: Platelet Count 47 k/uL (150-450)
[2023-02-25 09:42] LABS: Albumin 2.5 g/dL (3.5-5.0); Calcium 9.6 mg/dL (8.4-10.2); Potassium 4.1 mmol/L (3.5-5.1); Total Bilirubin 0.5 mg/dL (0.2-1.3); Total Protein 5.1 g/dL (6.3-8.2)
[2023-02-25] MEDS ORDERED: DEXTROSE 5% IN WATER 1,000 ML IV SCH (11:30)
[2023-02-25 11:32] LABS: C Reactive Protein 37.1 mg/dL (<1.0)
[2023-02-25] MEDS ORDERED: LEVOFLOXACIN 250 MG TAB PO SCH (12:00)
[2023-02-25] MEDS ORDERED: HYDROcodone/APAP 5-325MG 1 EACH TAB PO PRN (13:44)
[2023-02-25] MEDS ORDERED: MORPHINE SULFATE (100 MG/2 ML) 100 MG in SODIUM CHLORIDE 0.9% 100 ML IV SCH (13:45)
--- NOTE | 2023-02-25 13:50 | P.PN ---
Subjective Progress Note Date: 02/25/23 Patient is a 57-year-old male with history of developmental delay and hypertension. He is admitted to the hospital with history of fever along with decreased appetite and increased agitation. Patient was treated with oral antibiotics for possible pneumonia. There was concern for UTI as well. Patient is currently with a bedside sitter. He has been pulling on his IVs and his left arm is restrained with a mitten. 02/24. Patient seen and examined. Patient is pulling on his IVs, sitter in place, unable to obtain a detailed review of systems because of patient's history of developmental delay 02/25. Patient seen and examined. Discussed with patient's guardian, they don't want to pursue any more aggressive measures, wants patient to be transitioned to hospice. Palliative care team has been consulted. REVIEW OF SYSTEMS: Unable to obtain a detailed review of systems because of patient's history of developmental delay PHYSICAL EXAMINATION: GENERAL: History of developmental delay, confused, not in any acute distress. HEENT: Pupils are round and equally reacting to light. EOMI. No scleral icterus. No conjunctival pallor. Normocephalic, atraumatic. No pharyngeal erythema. No thyromegaly. CARDIOVASCULAR: S1 and S2 present. No murmurs, rubs, or gallops. PULMONARY: Chest is clear to auscultation, no wheezing or crackles. ABDOMEN: Soft, nontender, nondistended, normoactive bowel sounds. No palpable organomegaly. MUSCULOSKELETAL: Swelling of upper extremity seen EXTREMITIES: No cyanosis, clubbing, or pedal edema. NEUROLOGICAL: History of developmental delay SKIN: No rashes. Assessment and plan Bacteremia Bacterial pneumonia SHAYNE Elevated troponin Developmental delay Plan; CODE STATUS changed to DO NOT RESUSCITATE comfort measures. DC all antibiotics. DC all imaging and labs. Case management on board, palliative care team has been consulted as well. Family wants the patient to be discharged to hospice home Objective - Vital Signs Vital signs: Vital Signs Temp 97.9 F 02/25/23 04:00 Pulse 88 02/25/23 04:00 Resp 20 02/25/23 04:00 BP 128/76 02/25/23 04:00 Pulse Ox 94 L 02/25/23 04:00 FiO2 Intake & Output 02/24/23 02/25/23 02/25/23 18:59 06:59 18:59 Intake Total 1610 1580 Output Total 200 950 Balance 1410 630 Weight 48 kg Intake: IV 1580 Invasive Line 1 20 Sodium Chloride 0.9% 1, 1560 000 ml @ 130 mls/hr IV . Q7H42M [facility] Rx#:[id number] Intake, IV Titration 1610 Amount Sodium Chloride 0.9% 1, 1560 000 ml @ 130 mls/hr IV . Q7H42M [facility] Rx#:[id number] cefTRIAXone 1 gm In 50 Sodium Chloride 0.9% 50 ml @ 100 mls/hr IVPB Q24HR [facility] Rx#:[id number] Output: Urine 200 950 Other: Voiding Method Incontinent External Catheter # Voids 1 - Labs CBC & Chem 7: 02/25/23 07:17 02/25/23 07:17 Labs: Abnormal Lab Results - Last 24 Hours (Table) 02/24/23 02/24/23 02/25/23 Range/Units 06:56 15:16 07:17 RBC 3.83 L (4.30-5.90) m/uL Hgb 11.8 L (13.0-17.5) gm/dL Hct 37.5 L (39.0-53.0) % Plt Count 47 L (150-450) k/uL Lymphocytes # (Manual) 0.39 L (1.0-4.8) k/uL Urine Protein 1+ H (Negative) Urine Blood Large H (Negative) Urine RBC >182 H (0-5) /hpf Amorphous Sediment Occasional H (None) /hpf Microbiology - Last 24 Hours (Table) 02/24/23 17:17 Blood Culture Gram Stain - Preliminary Blood 02/24/23 17:17 Blood Culture - Final Blood 02/23/23 19:44 Blood Culture Gram Stain - Preliminary Blood 02/23/23 15:45 Blood Culture Gram Stain - Preliminary Blood Blood Culture - Preliminary Staphylococcus aureus 02/23/23 19:50 Blood Culture Gram Stain - Preliminary Blood 02/23/23 19:50 Blood Culture - Final Blood 02/23/23 19:44 Blood Culture - Final Blood
--- NOTE | 2023-02-25 13:51 | P.PN ---
Subjective Patient is seen for follow-up for acute kidney injury. Patient has underlying developmental delay. He is maintained on IV fluids. Renal function improved slightly but serum creatinine remains elevated at 3.2 mg/dL. Sodium is increased to 155 today. Patient was not cooperative during the ultrasound exam therefore a bladder scan was done and it did show significant urine retention. A Bautista catheter will be placed There is discussion regarding palliative/hospice care. Patient has beEN drinking a lot of water. Objective - Vital Signs Vital signs: Vital Signs Temp 97.7 F 02/25/23 07:42 Pulse 90 02/25/23 12:35 Resp 16 02/25/23 12:35 BP 148/90 02/25/23 12:35 Pulse Ox 98 02/25/23 12:35 FiO2 Intake & Output 02/24/23 02/25/23 02/25/23 18:59 06:59 18:59 Intake Total 1610 1580 Output Total 200 950 300 Balance 1410 630 -300 Weight 48 kg 48 kg Intake: IV 1580 Invasive Line 1 20 Sodium Chloride 0.9% 1, 1560 000 ml @ 130 mls/hr IV . Q7H42M [facility] Rx#:[id number] Intake, IV Titration 1610 Amount Sodium Chloride 0.9% 1, 1560 000 ml @ 130 mls/hr IV . Q7H42M [facility] Rx#:[id number] cefTRIAXone 1 gm In 50 Sodium Chloride 0.9% 50 ml @ 100 mls/hr IVPB Q24HR [facility] Rx#:[id number] Output: Urine 200 950 300 Other: Voiding Method Incontinent External Catheter External Catheter # Voids 1 - Exam Patient is awake. Does not open eyes Mitten still present in the left hand Right upper extremity hypoplastic Abdomen is soft No edema noted in the lower extremities Lungs are clear heart sounds are heard. - Labs CBC & Chem 7: 02/25/23 07:17 02/25/23 07:17 Labs: Abnormal Lab Results - Last 24 Hours (Table) 02/24/23 02/24/23 02/25/23 Range/Units 06:56 15:16 07:17 RBC 3.83 L (4.30-5.90) m/uL Hgb 11.8 L (13.0-17.5) gm/dL Hct 37.5 L (39.0-53.0) % Plt Count 47 L (150-450) k/uL Lymphocytes # (Manual) 0.39 L (1.0-4.8) k/uL Sodium (137-145) mmol/L Chloride (98-107) mmol/L Carbon Dioxide (22-30) mmol/L BUN (9-20) mg/dL Creatinine (0.66-1.25) mg/dL Glucose (74-99) mg/dL Alkaline Phosphatase (38-126) U/L C-Reactive Protein (<1.0) mg/dL Total Protein (6.3-8.2) g/dL Albumin (3.5-5.0) g/dL Urine Protein 1+ H (Negative) Urine Blood Large H (Negative) Urine RBC >182 H (0-5) /hpf Amorphous Sediment Occasional H (None) /hpf 02/25/23 Range/Units 07:17 RBC (4.30-5.90) m/uL Hgb (13.0-17.5) gm/dL Hct (39.0-53.0) % Plt Count (150-450) k/uL Lymphocytes # (Manual) (1.0-4.8) k/uL Sodium 155 H (137-145) mmol/L Chloride 125 H (98-107) mmol/L Carbon Dioxide 19 L (22-30) mmol/L BUN 124 H* (9-20) mg/dL Creatinine 3.28 H (0.66-1.25) mg/dL Glucose 122 H (74-99) mg/dL Alkaline Phosphatase 147 H (38-126) U/L C-Reactive Protein 37.1 H (<1.0) mg/dL Total Protein 5.1 L (6.3-8.2) g/dL Albumin 2.5 L (3.5-5.0) g/dL Urine Protein (Negative) Urine Blood (Negative) Urine RBC (0-5) /hpf Amorphous Sediment (None) /hpf Microbiology - Last 24 Hours (Table) 02/24/23 17:17 Blood Culture Gram Stain - Preliminary Blood 02/24/23 17:17 Blood Culture - Final Blood 02/23/23 19:44 Blood Culture Gram Stain - Preliminary Blood 02/23/23 15:45 Blood Culture Gram Stain - Preliminary Blood Blood Culture - Preliminary Staphylococcus aureus 02/23/23 19:50 Blood Culture Gram Stain - Preliminary Blood 02/23/23 19:50 Blood Culture - Final Blood Assessment and Plan Assessment: 1. Acute kidney injury, mostly ischemic ATN, and due to urine retention, currently nonoliguric. Patient was also maintained on NSAIDs. Currently discontinued. Continue with IV fluids. Insert Bautista catheter 2. Agitation possibly related to underlying infection 3. Recent diagnosis of pneumonia maintained on antibiotics as outpatient prior to admission, currently also on IV Rocephin 4. 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 History of hypertension 6. Hypernatremia Plan: Switch IV fluids to D5W Insert Bautista catheter Repeat labs in a.m. Continue to encourage increase oral intake particularly fluids.
[2023-02-25] MEDS ORDERED: ETODOLAC 400 MG TAB PO PRN (13:57)
[2023-02-25] MEDS ORDERED: SCOPOLAMINE 1 MG/72 HR PATCH TRANSDERM SCH (14:00)
--- NOTE | 2023-02-25 14:22 | P.CRDCN ---
History of Present Illness Consult date: 02/25/23 Reason for Consult (text): Elevated troponin History of present illness: History of present illness: This is a 57-year-old male with past medical history of being deaf and blind, developmentally delayed, hypertension, hypothyroidism, autism. Patient was brought in the hospital due to low pulse ox. Patient arrived to the emergency center on 02/23 and has been treated for bacterial pneumonia, bacteremia acute kidney injury. Patient had a troponin reading of 0.055 and consult was placed with cardiology for evaluation of elevated troponin. EKG was obtained this morning which revealed sinus rhythm with no acute ST changes Chest x-ray: 02/24 shows improving atelectatic changes right midlung W BC 8.7, hemoglobin 11.8, platelet count 47. Sodium 155, potassium 4.1, chloride 125, CO2 19, BUN 124 creatinine 3.28. This is improved from creatinine of 3.83. Blood sugar 122. Alkaline phosphatase 147. Troponin 0.055. TSH 0.609. Urinalysis bloody. Urine Legionella negative. Home cardiac medications: Toprol-XL 25 mg daily Review Of Systems: At the time of my evaluation: Unable to obtain. Physical examination: Gen: This is a 57-year-old thin male. He is sitting in a position with legs pulled up to his chest. No respiratory distress noted. VS: reviewed HEENT: Head is atraumatic. HEART: Regular rate and rhythm. No murmur. EXTREMITIES: No pedal edema. Assessment: Abnormal troponin most likely due to sepsis, acute kidney injury Pneumonia Bacteremia Acute kidney injury Developmentally delayed Deaf Blind Hypertension Hypothyroidism Plan: No cardiac workup at this time Cardiology will sign off Thank you kindly for this consultation. Nurse practitioner note has been reviewed, I agree with documented findings and plan of care. Patient was seen and examined. Past Medical History Past Medical History: Hearing Disorder / Deafness, Hypertension, Thyroid Disorder Additional Past Medical History / Comment(s): Hypertension, Constipation, Abnormal weight loss, Allergic Rhinitis, Autistic, Deaf/ Mute/ Blind, Hypothryoid. History of Any Multi-Drug Resistant Organisms: Unobtainable Past Surgical History: Unable to Obtain Additional Past Surgical History / Comment(s): Dental work under anesthesia, cataracts removed after multiple times. Past Anesthesia/Blood Transfusion Reactions: No Reported Reaction Smoking Status: Never smoker - Past Family History Father Family Medical History: Myocardial Infarction (CA) Additional Family Medical History / Comment(s): Father of a CA at the age of 48yrs. He was a drinker and a smoker. Medications and Allergies Home Medications Medication Instructions Recorded Confirmed Type Cetirizine HCl 10 mg PO HS@189907/20/22 02/23/23 History Famotidine 20 mg PO BID@0600,189907/20/22 02/23/23 History Lactose-Reduced Food [Boost] 1 can PO DAILY@59907/20/22 02/23/23 History Levothyroxine Sodium [Synthroid] 75 mcg PO DAILY@59907/20/22 02/23/23 History Magnesium Hydroxide [Milk of 2,400 mg PO DAILY PRN 07/20/22 02/23/23 History Magnesia] Melatonin 3 mg PO HS@189907/20/22 02/23/23 History Meloxicam [Mobic] 7.5 mg PO BID@06,189907/20/22 02/23/23 History Metamucil 0.52gm 1 cap PO DAILY 07/20/22 02/23/23 History Metoprolol Succinate (ER) [Toprol 25 mg PO DAILY@59907/20/22 02/23/23 History XL] Na Phos,M-B/Na Phos,Di-Ba [Fleet 133 ml RECTAL DAILY PRN 07/20/22 02/23/23 History Adult] Naltrexone HCl [Revia] 100 mg PO DAILY@0607/20/22 02/23/23 History Ibylgdxr-Lvbektzoeq-Qbxy Oint 1 applic TOPICAL DAILY PRN 07/20/22 02/23/23 History [Triple Antibiotic Ointment] OLANZapine [ZyPREXA] 20 mg PO HS@189907/20/22 02/23/23 History OXcarbazepine [Trileptal] 150 mg PO HS@189907/20/22 02/23/23 History OXcarbazepine [Trileptal] 600 mg PO BID@0600,189907/20/22 02/23/23 History Phenyleph/Pramoxin/Glycr/W.pet 1 applic RECTAL DAILY PRN 07/20/22 02/23/23 History [Preparation H Cream] Sennosides/Docusate Sodium [Senna 1 tab PO BID@0600,1900 07/20/22 02/23/23 History Plus 8.6-50 mg Tablet] diphenhydrAMINE [Benadryl] 25 - 50 mg PO DAILY PRN 07/20/22 02/23/23 History guaiFENesin-DM 600/30MG [Mucinex 1 tab PO Q12H PRN 07/20/22 02/23/23 History Dm] polyethylene glycoL 3350 [Miralax] 17 gm PO DAILY@0600 07/20/22 02/23/23 History Calcium Carbonate/Vitamin D3 1 tab PO DAILY@0600 02/23/23 02/23/23 History [Calcium 500-Vit D3 5 Mcg (200 Iu)] Hydrocortisone Cream 1 applic TOPICAL BID PRN 02/23/23 02/23/23 History [Hydrocortisone 1% Cream] Levofloxacin [Levaquin] 500 mg PO DAILY 02/23/23 02/23/23 History Multivit-Min/FA/Lycopen/Lutein 1 tab PO DAILY@0600 02/23/23 02/23/23 History [Centrum Silver Tablet] Ondansetron [Zofran] 4 mg PO BID PRN 02/23/23 02/23/23 History Allergies Allergy/AdvReac Type Severity Reaction Status Date / Time brompheniramine Allergy Unknown Verified 02/23/23 16:22 [From Dimetapp (brompheniramine-PPA)] haloperidol [From Haldol] Allergy Unknown Verified 02/23/23 16:22 phenylpropanolamine Allergy Unknown Verified 02/23/23 16:22 [From Dimetapp (brompheniramine-PPA)] risperidone [From Risperdal] Allergy Unknown Verified 02/23/23 16:22 Physical Exam Vitals: Vital Signs Temp Pulse Resp BP Pulse Ox 02/25/23 12:35 90 16 148/90 98 02/25/23 07:42 97.7 F 92 16 141/92 96 02/25/23 04:00 97.9 F 88 20 128/76 94 L 02/25/23 00:00 97.6 F 89 20 118/74 95 02/24/23 20:00 97.7 F 110 H 20 162/80 96 02/24/23 16:27 97.5 F L 100 20 151/88 94 L Intake and Output 02/24/23 02/25/23 02/25/23 22:59 06:59 14:59 Intake Total 1620 1570 Output Total 200 950 300 Balance 1420 620 -300 Intake: IV 10 1570 Invasive Line 1 10 10 Sodium Chloride 0.9% 1, 1560 000 ml @ 130 mls/hr IV . Q7H42M [facility] Rx#:[id number] Intake, IV Titration 1610 Amount Sodium Chloride 0.9% 1, 1560 000 ml @ 130 mls/hr IV . Q7H42M [facility] Rx#:[id number] cefTRIAXone 1 gm In 50 Sodium Chloride 0.9% 50 ml @ 100 mls/hr IVPB Q24HR [facility] Rx#:[id number] Output: Urine 200 950 300 Other: Voiding Method External Catheter External Catheter External Catheter Weight 48 kg 48 kg Results 02/25/23 07:17 02/25/23 07:17 Cardiac Enzymes 02/25/23 Range/Units 07:17 AST 38 (17-59) U/L CBC 02/25/23 Range/Units 07:17 WBC 8.7 (3.8-10.6) k/uL RBC 3.83 L (4.30-5.90) m/uL Hgb 11.8 L (13.0-17.5) gm/dL Hct 37.5 L (39.0-53.0) % Plt Count 47 L (150-450) k/uL Comprehensive Metabolic Panel 02/25/23 Range/Units 07:17 Sodium 155 H (137-145) mmol/L Potassium 4.1 (3.5-5.1) mmol/L Chloride 125 H (98-107) mmol/L Carbon Dioxide 19 L (22-30) mmol/L BUN 124 H* (9-20) mg/dL Creatinine 3.28 H (0.66-1.25) mg/dL Glucose 122 H (74-99) mg/dL Calcium 9.6 (8.4-10.2) mg/dL AST 38 (17-59) U/L ALT 44 (4-49) U/L Alkaline Phosphatase 147 H (38-126) U/L Total Protein 5.1 L (6.3-8.2) g/dL Albumin 2.5 L (3.5-5.0) g/dL Current Medications Generic Name Dose Route Start Last Admin Trade Name Freq PRN Reason Stop Dose Admin Acetaminophen 650 mg 02/25/23 13:44 Acetaminophen Tab 325 Mg Tab PO Q4HR PRN Fever and/or Mild Pain Etodolac 400 mg 02/25/23 13:57 Etodolac 400 Mg Tab PO TID PRN PAIN 4-10 Guaifenesin/Dextromethorphan 1 each 02/23/23 17:24 Guaifenesin-Dm 600/30mg 1 Each Tab.Er.12h PO Q12H PRN Congestion Levothyroxine Sodium 75 mcg 02/24/23 06:00 02/25/23 06:29 Levothyroxine 75 Mcg Tab PO 75 mcg DAILY@0600 [facility] Administration Loratadine 10 mg 02/23/23 19:00 02/24/23 22:01 Loratadine 10 Mg Tab PO 10 mg HS@1900 [facility] Administration Lorazepam 0.5 mg 02/25/23 13:44 Lorazepam 0.5 Mg Tab PO TID PRN Anxiety Magnesium Hydroxide 2,400 mg 02/23/23 17:24 Magnesium Hydroxide 2,400 Mg/10 Ml Cup PO DAILY PRN Constipation Miscellaneous Information 1 each 02/23/23 17:21 Pneumonia Protocol Utilized 1 Each Misc PO ONCE PRN Per Protocol Multivitamins 1 each 02/24/23 06:00 02/25/23 06:29 Multivitamins, Thera 1 Each Tab PO 1 each DAILY@0600 [facility] Administration Olanzapine 20 mg 02/23/23 19:00 02/24/23 22:00 Olanzapine 10 Mg Tab PO 20 mg HS@1900 [facility] Administration Ondansetron HCl 4 mg 02/23/23 17:24 Ondansetron 4 Mg Tab PO BID PRN Nausea Polyethylene Glycol 17 gm 02/24/23 06:00 02/25/23 06:32 Polyethylene Glycol 3350 17 Gm Powd.Pack PO Not Given DAILY@0600 [facility] Psyllium Hydrophilic Mucilloid 1 gm 02/24/23 09:00 02/25/23 07:00 Psyllium Husk 100% 6 Gm Packet PO Not Given DAILY [facility] Scopolamine 1 patch 02/25/23 14:00 Scopolamine 1 Mg/72 Hr Patch TRANSDERM Q72H [facility] Senna/Docusate Sodium 1 each 02/23/23 19:00 02/25/23 06:29 Sennosides-Docusate Sodium 1 Each Tab PO 1 each BID@0600,1900 [facility] Administration Witch Rosaline 1 each 02/23/23 18:00 Witch Rosaline 1 Each Med..Pad TOPICAL QID PRN Hemorrhoids Intake and Output 02/24/23 02/25/23 02/25/23 22:59 06:59 14:59 Intake Total 1620 1570 Output Total 200 950 300 Balance 1420 620 -300 Intake: IV 10 1570 Invasive Line 1 10 10 Sodium Chloride 0.9% 1, 1560 000 ml @ 130 mls/hr IV . Q7H42M [facility] Rx#:[id number] Intake, IV Titration 1610 Amount Sodium Chloride 0.9% 1, 1560 000 ml @ 130 mls/hr IV . Q7H42M [facility] Rx#:[id number] cefTRIAXone 1 gm In 50 Sodium Chloride 0.9% 50 ml @ 100 mls/hr IVPB Q24HR [facility] Rx#:[id number] Output: Urine 200 950 300 Other: Voiding Method External Catheter External Catheter External Catheter Weight 48 kg 48 kg Patient Weight 02/26/23 06:59 Weight 48 kg 02/25/23 07:17 02/25/23 07:17
--- NOTE | 2023-02-25 19:34 | P.PN ---
Subjective Progress Note Date: 02/25/23 Principal diagnosis: MRSA bacteremia and pneumonia Patient is a 57-year-old male with a past medical history significant for developmental delay patient is deaf and blind also with a history of hypertension hypothyroidism and autism the patient was brought into the ER or the patient was noticed to have low pulse ox in the 80s and the patient has been running a fever, patient has been diagnosed with pneumonia and blood culture positive for presumptive MRSA. On today's evaluation that is 02/25/2023, the patient is afebrile and the patient is currently breathing comfortably on room air patient is being fed by a caregiver no worsening cough or choking has been reported no vomiting or diarrhea Objective - Vital Signs Vital signs: Vital Signs Temp 97.7 F 02/25/23 07:42 Pulse 90 02/25/23 12:35 Resp 16 02/25/23 12:35 BP 148/90 02/25/23 12:35 Pulse Ox 98 02/25/23 12:35 FiO2 Intake & Output 02/24/23 02/25/23 02/25/23 18:59 06:59 18:59 Intake Total 1610 1580 Output Total 200 950 300 Balance 1410 630 -300 Weight 48 kg 48 kg Intake: IV 1580 Invasive Line 1 20 Sodium Chloride 0.9% 1, 1560 000 ml @ 130 mls/hr IV . Q7H42M [facility] Rx#:[id number] Intake, IV Titration 1610 Amount Sodium Chloride 0.9% 1, 1560 000 ml @ 130 mls/hr IV . Q7H42M [facility] Rx#:[id number] cefTRIAXone 1 gm In 50 Sodium Chloride 0.9% 50 ml @ 100 mls/hr IVPB Q24HR [facility] Rx#:[id number] Output: Urine 200 950 300 Other: Voiding Method Incontinent External Catheter External Catheter # Voids 1 - Exam GENERAL DESCRIPTION: Middle-age male lying in bed in no distress RESPIRATORY SYSTEM: Unlabored breathing , decreased breath sounds at bases HEART: S1 S2 regular rate and rhythm , ABDOMEN: Soft , no tenderness EXTREMITIES: No edema feet - Labs CBC & Chem 7: 02/25/23 07:17 02/25/23 07:17 Labs: Abnormal Lab Results - Last 24 Hours (Table) 02/24/23 02/24/23 02/25/23 Range/Units 06:56 15:16 07:17 RBC 3.83 L (4.30-5.90) m/uL Hgb 11.8 L (13.0-17.5) gm/dL Hct 37.5 L (39.0-53.0) % Plt Count 47 L (150-450) k/uL Lymphocytes # (Manual) 0.39 L (1.0-4.8) k/uL Sodium (137-145) mmol/L Chloride (98-107) mmol/L Carbon Dioxide (22-30) mmol/L BUN (9-20) mg/dL Creatinine (0.66-1.25) mg/dL Glucose (74-99) mg/dL Alkaline Phosphatase (38-126) U/L C-Reactive Protein (<1.0) mg/dL Total Protein (6.3-8.2) g/dL Albumin (3.5-5.0) g/dL Urine Protein 1+ H (Negative) Urine Blood Large H (Negative) Urine RBC >182 H (0-5) /hpf Amorphous Sediment Occasional H (None) /hpf 02/25/23 Range/Units 07:17 RBC (4.30-5.90) m/uL Hgb (13.0-17.5) gm/dL Hct (39.0-53.0) % Plt Count (150-450) k/uL Lymphocytes # (Manual) (1.0-4.8) k/uL Sodium 155 H (137-145) mmol/L Chloride 125 H (98-107) mmol/L Carbon Dioxide 19 L (22-30) mmol/L BUN 124 H* (9-20) mg/dL Creatinine 3.28 H (0.66-1.25) mg/dL Glucose 122 H (74-99) mg/dL Alkaline Phosphatase 147 H (38-126) U/L C-Reactive Protein 37.1 H (<1.0) mg/dL Total Protein 5.1 L (6.3-8.2) g/dL Albumin 2.5 L (3.5-5.0) g/dL Urine Protein (Negative) Urine Blood (Negative) Urine RBC (0-5) /hpf Amorphous Sediment (None) /hpf Microbiology - Last 24 Hours (Table) 02/24/23 17:17 Blood Culture Gram Stain - Preliminary Blood 03/26/23 17:17 Blood Culture - Final Blood 02/23/23 19:44 Blood Culture Gram Stain - Preliminary Blood 02/23/23 15:45 Blood Culture Gram Stain - Preliminary Blood Blood Culture - Preliminary Staphylococcus aureus 02/23/23 19:50 Blood Culture Gram Stain - Preliminary Blood 02/23/23 19:50 Blood Culture - Final Blood 02/23/23 19:44 Blood Culture - Final Blood Assessment and Plan (1) MRSA bacteremia Current Visit: Yes Status: Acute Code(s): R78.81 - BACTEREMIA; B95.62 - METHICILLIN RESIS STAPH INFCT CAUSING DISEASES [facility] SNOMED Code(s): 69328531636932778 (2) Pneumonia Current Visit: Yes Status: Acute Code(s): J18.9 - PNEUMONIA, UNSPECIFIED ORGANISM SNOMED Code(s): 490675155 Plan: 1patient with gram-positive bacteremia in this patient presented to hospital with low pulse ox congested cough and evidence of left lower lobe infiltrate on the chest x-ray concerning for pneumonia likely secondary to pneumonia blood cultures have been finalized with MRSA 2patient with renal insufficiency and high risk of nephrotoxicity from vancomycin. 3patient to continue with Zyvox, with a possible plan for hospice unit hold on adding any further workup at this point
[2023-02-25] MEDS: LORATADINE 10 MG TAB PO SCH (21:41)
[2023-02-25] MEDS: OLANZapine 10 MG TAB PO SCH (21:42)
[2023-02-26] MEDS: ACETAMINOPHEN TAB 325 MG TAB PO PRN (01:12)
[2023-02-26] MEDS: LEVOTHYROXINE 75 MCG TAB PO SCH (05:29)
[2023-02-26] MEDS: MULTIVITAMINS, THERA 1 EACH TAB PO SCH (05:29)
[2023-02-26] MEDS: SENNOSIDES-DOCUSATE SODIUM 1 EACH TAB PO SCH ×2 (05:29→19:13)
[2023-02-26] MEDS: polyethylene glycoL 3350 17 GM POWD.PACK PO SCH (05:29)
[2023-02-26] MEDS: PSYLLIUM HUSK 100% 6 GM PACKET PO SCH (07:29)
--- NOTE | 2023-02-26 12:12 | CDI ---
Documentation Clarification Form Date: 02/26/2023 12:08:20 PM From: Janelle Izaguirre RN, CCDS Email: [email or web address] Admit Date: 02/23/2023 5:21:00 PM Patient Name: Steven Alamo Visit Number: [id number] Discharge Date: ATTENTION: The Clinical Documentation Specialists (CDI) and [facility] Coding Staff appreciate your assistance in clarifying documentation. Please respond to the clarification below the line at the bottom and electronically sign. The CDI & [facility] Coding staff will review the response and follow-up if needed. Please note: Queries are made part of the Legal Health Record. If you have any questions, please contact the author of this message via ITS. Dr. Jim Giordano Your patient has MRSA bacteremia. Based on this information and the findings below, is there an additional diagnosis that is clinically appropriate for this patient? History/Risk Factors: developmentally delayed, autistic, blind, deaf, HTN, hypothyroidism. Admitted for pneumonia failing outpatient therapy. Clinical Indicators: Cr 3.83-3.64-3.28, troponin 0.055, CK 527, procalcitonin 8.43, +UA, +BC presumptive MRSA CXR: Mild right midlung infiltrate. Correlate for atelectasis or pneumonia. Nephrology: "Acute kidney injury, mostly ischemic ATN, currently non oliguric." ID: "MRSA bacteremia and pneumonia." Cardiology: "Abnormal troponin most likely due to sepsis, acute kidney injury." 02/26 temp 100.9, HR 106 Treatment: IV Ceftriaxone 02/23-02/25. IV Levaquin 02/23. Zyvox po 02/24-02/25. 0.9 NS@130/hr Please provide additional clarification regarding the etiology/cause and/or clinical significance of the bacteremia: [ ] Bacteremia is related to sepsis [ x ] Bacteremia is due to infectious process, please specify: ___left lower lobe_pneumonia_ [ ] Other, please specify [ ] Unable to determine MTDD
--- NOTE | 2023-02-26 12:14 | P.PN ---
Subjective Patient is seen for follow-up for acute kidney injury. Patient has underlying developmental delay. Patient is blind and deaf. Patient was maintained on IV fluids however he has been agitated and had been pulling at the IVs. Patient was noted to have significant urine retention and therefore Bautista catheter was placed. CODE STATUS has been changed to Comfort Care therefore IV fluids were discontinued Objective - Vital Signs Vital signs: Vital Signs Temp 98.0 F 02/26/23 06:56 Pulse 54 L 02/26/23 06:56 Resp 17 02/26/23 06:56 BP 131/88 02/26/23 06:56 Pulse Ox 90 L 02/26/23 06:56 FiO2 Intake & Output 02/25/23 02/26/23 02/26/23 18:59 06:59 18:59 Intake Total 200 Output Total 1000 600 Balance -800 -600 Weight 48 kg Intake: Oral 200 Output: Urine 1000 600 Uretheral (Bautista) 700 Other: Voiding Method Indwelling Catheter Indwelling Catheter Indwelling Catheter - Exam Patient is awake. Does not open eyes Mitten still present in the left hand Right upper extremity hypoplastic Abdomen is soft No edema noted in the lower extremities Lungs are clear heart sounds are heard. - Labs CBC & Chem 7: 02/25/23 07:17 02/25/23 07:17 Labs: Abnormal Lab Results - Last 24 Hours (Table) 02/25/23 Range/Units 07:17 Procalcitonin 8.43 H (0.02-0.09) ng/mL Microbiology - Last 24 Hours (Table) 02/24/23 17:17 Blood Culture Gram Stain - Preliminary Blood Blood Culture - Preliminary Presumptive MRSA 02/23/23 19:50 Blood Culture Gram Stain - Preliminary Blood Blood Culture - Preliminary Presumptive MRSA 02/23/23 19:44 Blood Culture Gram Stain - Preliminary Blood Blood Culture - Preliminary Presumptive MRSA 02/23/23 15:45 Blood Culture Gram Stain - Preliminary Blood Blood Culture - Preliminary Presumptive MRSA 02/24/23 17:17 Blood Culture - Final Blood Assessment and Plan Assessment: 1. Acute kidney injury, mostly ischemic ATN, urine retention and NSAIDs, c urrently nonoliguric. 2. Agitation possibly related to underlying infection 3. Recent diagnosis of pneumonia maintained on antibiotics as outpatient prior to admission, currently also on IV Rocephin 4. 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 History of hypertension 6. Hypernatremia 7. MRSA bacteremia Plan: May continue off of IV fluids as "status has been changed to comfort care. We will sign off
--- NOTE | 2023-02-26 14:37 | P.PN ---
Subjective Progress Note Date: 02/26/23 Patient is a 57-year-old male with history of developmental delay and hypertension. He is admitted to the hospital with history of fever along with decreased appetite and increased agitation. Patient was treated with oral antibiotics for possible pneumonia. There was concern for UTI as well. Patient is currently with a bedside sitter. He has been pulling on his IVs and his left arm is restrained with a mitten. 02/24. Patient seen and examined. Patient is pulling on his IVs, sitter in place, unable to obtain a detailed review of systems because of patient's history of developmental delay 02/25. Patient seen and examined. Discussed with patient's guardian, they don't want to pursue any more aggressive measures, wants patient to be transitioned to hospice. Palliative care team has been consulted. 02/26. Patient seen and examined. Patient currently comfortably. No acute distress noted REVIEW OF SYSTEMS: Unable to obtain a detailed review of systems because of patient's history of developmental delay PHYSICAL EXAMINATION: GENERAL: History of developmental delay, confused, not in any acute distress. HEENT: Pupils are round and equally reacting to light. EOMI. No scleral icterus. No conjunctival pallor. Normocephalic, atraumatic. No pharyngeal erythema. No thyromegaly. CARDIOVASCULAR: S1 and S2 present. No murmurs, rubs, or gallops. PULMONARY: Chest is clear to auscultation, no wheezing or crackles. ABDOMEN: Soft, nontender, nondistended, normoactive bowel sounds. No palpable organomegaly. MUSCULOSKELETAL: Swelling of upper extremity seen EXTREMITIES: No cyanosis, clubbing, or pedal edema. NEUROLOGICAL: History of developmental delay SKIN: No rashes. Assessment and plan Bacteremia Bacterial pneumonia SHAYNE Elevated troponin Developmental delay Plan; CODE STATUS is DO NOT RESUSCITATE comfort measures. Continue comfort care measures Case management on board, palliative care team has been consulted as well. Family wants the patient to be discharged to hospice home Objective - Vital Signs Vital signs: Vital Signs Temp 98.0 F 02/26/23 06:56 Pulse 54 L 02/26/23 06:56 Resp 17 02/26/23 06:56 BP 131/88 02/26/23 06:56 Pulse Ox 90 L 02/26/23 06:56 FiO2 Intake & Output 02/25/23 02/26/23 02/26/23 18:59 06:59 18:59 Intake Total 200 Output Total 1000 600 800 Balance -800 -600 -800 Weight 48 kg Intake: Oral 200 Output: Urine 1000 600 800 Uretheral (Bautista) 700 Other: Voiding Method Indwelling Catheter Indwelling Catheter Indwelling Catheter - Labs CBC & Chem 7: 02/25/23 07:17 02/25/23 07:17 Labs: Abnormal Lab Results - Last 24 Hours (Table) 02/25/23 Range/Units 07:17 Procalcitonin 8.43 H (0.02-0.09) ng/mL Microbiology - Last 24 Hours (Table) 02/23/23 19:44 Blood Culture Gram Stain - Final Blood Blood Culture - Final Methicillin resist S. aureus 02/23/23 19:50 Blood Culture Gram Stain - Final Blood Blood Culture - Final Methicillin resist S. aureus 02/23/23 15:45 Blood Culture Gram Stain - Final Blood Blood Culture - Final Methicillin resist S. aureus 02/24/23 17:17 Blood Culture Gram Stain - Preliminary Blood Blood Culture - Preliminary Presumptive MRSA
[2023-02-26] MEDS: OLANZapine 10 MG TAB PO SCH (19:13)
[2023-02-26] MEDS: LORATADINE 10 MG TAB PO SCH (19:13)
--- NOTE | 2023-02-26 21:10 | P.PN ---
Subjective Progress Note Date: 02/26/23 Principal diagnosis: MRSA bacteremia and pneumonia Patient is a 57-year-old male with a past medical history significant for developmental delay patient is deaf and blind also with a history of hypertension hypothyroidism and autism the patient was brought into the ER or the patient was noticed to have low pulse ox in the 80s and the patient has been running a fever, patient has been diagnosed with pneumonia and blood culture positive for presumptive MRSA. On today's evaluation that is 02/26/2023, the patient remains to be afebrile and the patient is breathing comfortably on room air patient remains to be sleepy lethargic and vomiting diarrhea or any other changes reported Objective - Vital Signs Vital signs: Vital Signs Temp 98.0 F 02/26/23 06:56 Pulse 54 L 02/26/23 06:56 Resp 17 02/26/23 06:56 BP 131/88 02/26/23 06:56 Pulse Ox 90 L 02/26/23 06:56 FiO2 Intake & Output 02/26/23 02/26/23 02/27/23 06:59 18:59 06:59 Output Total 600 800 Balance -600 -800 Output: Urine 600 800 Other: Voiding Method Indwelling Catheter Indwelling Catheter Indwelling Catheter # Voids 2 - Exam GENERAL DESCRIPTION: Middle-age male lying in bed in no distress RESPIRATORY SYSTEM: Unlabored breathing , decreased breath sounds at bases HEART: S1 S2 regular rate and rhythm , ABDOMEN: Soft , no tenderness EXTREMITIES: No edema feet - Labs CBC & Chem 7: 02/25/23 07:17 02/25/23 07:17 Labs: Microbiology - Last 24 Hours (Table) 02/23/23 19:44 Blood Culture Gram Stain - Final Blood Blood Culture - Final Methicillin resist S. aureus 02/23/23 19:50 Blood Culture Gram Stain - Final Blood Blood Culture - Final Methicillin resist S. aureus 02/23/23 15:45 Blood Culture Gram Stain - Final Blood Blood Culture - Final Methicillin resist S. aureus 02/24/23 17:17 Blood Culture Gram Stain - Preliminary Blood Blood Culture - Preliminary Presumptive MRSA Assessment and Plan (1) MRSA bacteremia Current Visit: Yes Status: Acute Code(s): R78.81 - BACTEREMIA; B95.62 - METHICILLIN RESIS STAPH INFCT CAUSING DISEASES [facility] SNOMED Code(s): 35713736031849117 (2) Pneumonia Current Visit: Yes Status: Acute Code(s): J18.9 - PNEUMONIA, UNSPECIFIED ORGANISM SNOMED Code(s): 378495683 Plan: 1patient with gram-positive bacteremia in this patient presented to hospital with low pulse ox congested cough and evidence of left lower lobe infiltrate on the chest x-ray concerning for pneumonia likely secondary to pneumonia blood cultures have been finalized with MRSA 2patient with renal insufficiency and high risk of nephrotoxicity from vancomycin. 3patient has been switched over to hospice oriented care and his Zyvox has been discontinued, infectious diseases service will sign off Time with Patient: Less than 30
[2023-02-27] MEDS: MAGNESIUM HYDROXIDE 2,400 MG/10 ML CUP PO PRN (01:27)
[2023-02-27] MEDS: ACETAMINOPHEN TAB 325 MG TAB PO PRN ×3 (01:37→20:03)
[2023-02-27] MEDS: LORazepam 0.5 MG TAB PO PRN ×2 (02:52→20:04)
[2023-02-27] MEDS: SENNOSIDES-DOCUSATE SODIUM 1 EACH TAB PO SCH ×2 (05:49→20:04)
[2023-02-27] MEDS: LEVOTHYROXINE 75 MCG TAB PO SCH (05:49)
[2023-02-27] MEDS: polyethylene glycoL 3350 17 GM POWD.PACK PO SCH (05:49)
[2023-02-27] MEDS: MULTIVITAMINS, THERA 1 EACH TAB PO SCH (05:49)
[2023-02-27] MEDS: PSYLLIUM HUSK 100% 6 GM PACKET PO SCH (10:13)
--- NOTE | 2023-02-27 13:49 | P.PN ---
Subjective Progress Note Date: 02/27/23 Patient is a 57-year-old male with history of developmental delay and hypertension. He is admitted to the hospital with history of fever along with decreased appetite and increased agitation. Patient was treated with oral antibiotics for possible pneumonia. There was concern for UTI as well. Patient is currently with a bedside sitter. He has been pulling on his IVs and his left arm is restrained with a mitten. 02/24. Patient seen and examined. Patient is pulling on his IVs, sitter in place, unable to obtain a detailed review of systems because of patient's history of developmental delay 02/25. Patient seen and examined. Discussed with patient's guardian, they don't want to pursue any more aggressive measures, wants patient to be transitioned to hospice. Palliative care team has been consulted. 02/26. Patient seen and examined. Patient currently comfortably. No acute distress noted 02/27. Patient seen and examined. Sitter at the bedside. Patient has not had a bowel movement. Will add stool softener REVIEW OF SYSTEMS: Unable to obtain a detailed review of systems because of patient's history of developmental delay PHYSICAL EXAMINATION: GENERAL: History of developmental delay, confused, not in any acute distress. HEENT: Pupils are round and equally reacting to light. EOMI. No scleral icterus. No conjunctival pallor. Normocephalic, atraumatic. No pharyngeal erythema. No thyromegaly. CARDIOVASCULAR: S1 and S2 present. No murmurs, rubs, or gallops. PULMONARY: Chest is clear to auscultation, no wheezing or crackles. ABDOMEN: Soft, nontender, nondistended, normoactive bowel sounds. No palpable organomegaly. MUSCULOSKELETAL: Swelling of upper extremity seen EXTREMITIES: No cyanosis, clubbing, or pedal edema. NEUROLOGICAL: History of developmental delay SKIN: No rashes. Assessment and plan Bacteremia Bacterial pneumonia SHAYNE Elevated troponin Developmental delay Plan; CODE STATUS is DO NOT RESUSCITATE comfort measures. Continue comfort care measures Continue bowel regimen Plan for patient to be discharged to facility with hospice Objective - Vital Signs Vital signs: Vital Signs Temp 98.6 F 02/27/23 07:18 Pulse 78 02/27/23 07:45 Resp 19 02/27/23 07:45 BP 106/56 02/27/23 07:18 Pulse Ox 95 02/27/23 08:40 FiO2 Intake & Output 02/26/23 02/27/23 02/27/23 18:59 06:59 18:59 Output Total 800 1000 1210 Balance -800 -1000 -1210 Weight 48 kg Output: Urine 800 1000 1210 Other: Voiding Method Indwelling Catheter Indwelling Catheter Indwelling Catheter # Voids 2 2 - Labs CBC & Chem 7: 02/25/23 07:17 02/25/23 07:17 Labs: Microbiology - Last 24 Hours (Table) 02/24/23 17:17 Blood Culture Gram Stain - Final Blood Blood Culture - Final Methicillin resist S. aureus 02/23/23 19:44 Blood Culture Gram Stain - Final Blood Blood Culture - Final Methicillin resist S. aureus 02/23/23 19:50 Blood Culture Gram Stain - Final Blood Blood Culture - Final Methicillin resist S. aureus 02/23/23 15:45 Blood Culture Gram Stain - Final Blood Blood Culture - Final Methicillin resist S. aureus
[2023-02-27] MEDS ORDERED: bisacodyL 10 MG SUPP RECTAL STA (16:44)
[2023-02-27] MEDS: LORATADINE 10 MG TAB PO SCH (20:03)
[2023-02-27] MEDS: OLANZapine 10 MG TAB PO SCH (20:03)
[2023-02-28] MEDS: ACETAMINOPHEN TAB 325 MG TAB PO PRN ×2 (04:22→08:37)
[2023-02-28] MEDS: SENNOSIDES-DOCUSATE SODIUM 1 EACH TAB PO SCH (05:52)
[2023-02-28] MEDS: LEVOTHYROXINE 75 MCG TAB PO SCH (05:52)
[2023-02-28] MEDS: MULTIVITAMINS, THERA 1 EACH TAB PO SCH (05:52)
[2023-02-28] MEDS: MAGNESIUM HYDROXIDE 2,400 MG/10 ML CUP PO PRN (05:52)
[2023-02-28] MEDS: LORazepam 0.5 MG TAB PO PRN ×2 (05:52→13:11)
[2023-02-28] MEDS: polyethylene glycoL 3350 17 GM POWD.PACK PO SCH (05:53)
[2023-02-28] MEDS: PSYLLIUM HUSK 100% 6 GM PACKET PO SCH (08:36)
[2023-02-28 11:00] VITALS: BP 91/54; PULSE 54; RESP 18; TEMP 98.8
== END 2023-02-28 13:21 | disposition other institution (70) | DRG 193 ==
LOC: EC 12:25 → 3SCARD 17:21 → 4SSUR 02-25 14:42
PROVIDERS: ADMIT Hospitalist; ATTEND Hospitalist
DX: J15.9 Unspecified bacterial pneumonia (principal); N17.0 Acute kidney failure with tubular necrosis; E87.0 Hyperosmolality and hypernatremia; F84.0 Autistic disorder; M62.82 Rhabdomyolysis; N39.0 Urinary tract infection, site not specified; R78.81 Bacteremia; Z51.5 Encounter for palliative care; Z66 Do not resuscitate; E03.9 Hypothyroidism, unspecified; E86.0 Dehydration; H54.7 Unspecified visual loss; R33.8 Other retention of urine; I10 Essential (primary) hypertension; B95.62 Methicillin resistant Staphylococcus aureus infection as the cause of diseases classified elsewhere; H91.3 Deaf nonspeaking, not elsewhere classified; R62.50 Unspecified lack of expected normal physiological development in childhood; R79.89 Other specified abnormal findings of blood chemistry; J30.9 Allergic rhinitis, unspecified; Z79.890 Hormone replacement therapy; Z79.1 Long term (current) use of non-steroidal anti-inflammatories (NSAID); Z79.899 Other long term (current) drug therapy; Z88.8 Allergy status to other drugs, medicaments and biological substances
CPT/HCPCS: 36415; 71045; 71046; 76770; 80053; 81001; 82550; 83605; 84145; 84443; 84484; 85025; 85027; 85610; 85730; 86140; 87040; 87077; 87186; 87449; 94760; 96365; 96375; 99291